=== PATIENT | male | born 1970 | race Caucasian/White ===

== ENCOUNTER 2018-06-06 09:51 | Inpatient (IN) | payer OTHER ==
[2018-06-06 10:29] VITALS: BMI 22.7
--- NOTE | 2018-06-06 11:15 | HP ---
COWS - Scale Resting Pulse: 0= [place] 80 or Below Sweatin= Chills/Flushing Restless Observation: 3= Extraneous Movement Pupil Size: 0= Normal to Room Light Bone or Joint Aches: 1= Mild Discomfort Runny Nose/ Eye Tearin= Nasal Congestion GI Upset > 30mins: 1= Stomach Cramp Tremor Observation: 1= Tremor [place], Not Seen Yawning Observation: 1= 1-2x During Session Anxiety or Irritability: 2=Irritable/Anxious Goose Flesh Skin: 3=Piloerection COWS Score: 14 Admission ROS S - HPI Chief Complaint: HEROIN WITHDRAWAL SX-HOT/COLD CHILLS,SHAKES Allergies/Adverse Reactions: Allergies Allergy/AdvReac Type Severity Reaction Status Date / Time Fish Containing Products Allergy Severe Swelling Verified 06/06/18 10:45 NKDA Allergy Uncoded 06/06/18 10:45 History of Present Illness: 47 Y/O H/MALE WITH A HX OF HEROIN DEPENDENCE SEEKING DETOX TX. THIS IS PT'S FIRST TIME HERE BUT REPORTS PREVIOUS TREATMENT EPISODE. ALERT O X 3. REPORTS HX ANXIETY AND INSOMNIA. DENIES DEPRESSION. DENIES S/H/I. Exam Limitations: No Limitations - Ebola screening Have you traveled outside of the country in the last 21 days: No (N) Have you had contact with anyone from an Ebola affected area: No Have you been sick,other than usual withdrawal symptoms: No Do you have a fever: No - Review of Systems Constitutional: Chills, Loss of Appetite, Night Sweats, Changes in sleep EENT: reports: Tearing, Nose Congestion, Dental Problems (MISSING TEETH) Respiratory: reports: No Symptoms reported Cardiac: reports: Lightheadedness GI: reports: Constipated, Diarrhea, Nausea, Vomiting : reports: No Symptoms Reported Musculoskeletal: reports: Back Pain, Joint Pain, Muscle Pain Integumentary: reports: Bruising (IVD INJ SITE ON RIGHT AND LEFT ELBOWS.) Neuro: reports: Headache, Numbness, Tingling, Tremors, Dizziness Endocrine: reports: No Symptoms Reported Hematology: reports: No Symptoms Reported Psychiatric: reports: Orientated x3, Anxious Other Systems: Reviewed and Negative Patient History - Patient Medical History Hx Anemia: No Hx Asthma: No Hx Chronic Obstructive Pulmonary Disease (COPD): No Hx Cardiac Disorders: No Hx Hypertension: No Hx Hypercholesterolemia: No HX Cerebrovascular Accident: No Hx Seizures: No Hx Diabetes: No Hx Gastrointestinal Disorders: No Hx Genitourinary Disorders: No Hx Sexually Transmitted Disorders: No (DENIES) Hx Renal Disease (ESRD): No Hx Hepatitis C: Yes (IN 1997 TREATMENT DONE IN LONG-TERM) Hx Depression: No Hx Suicide Attempt: No (DENIES S/I) Hx Schizophrenia: No Other Medical History: ANXIETY AND INSOMNIA-WANTS PSYCH EVALUATION - Patient Surgical History Past Surgical History: Yes Hx Neurologic Surgery: No Hx Cataract Extraction: No Hx Cardiac Surgery: No Hx Lung Surgery: No Hx Breast Surgery: No Hx Breast Biopsy: No Hx Abdominal Surgery: No Hx Appendectomy: No Hx Cholecystectomy: No Hx Genitourinary Surgery: No Hx Orthopedic Surgery: Yes (fx, right wrist) Anesthesia Reaction: No - PPD History Previous Implant?: Yes (HX PPD+-TREATED IN LONG-TERM FOR 6 MONTHS IN 2002) Documented Results: Positive w/o proof Implanted On Prior R Admission?: No PPD to be Administered?: No - Reproductive History Patient is a Female of Child Bearing Age (11 -55 yrs old): No (MALE) - Smoking Cessation Smoking history: Current every day smoker Have you smoked in the past 12 months: Yes Aproximately how many cigarettes per day: 20 Hx Chewing Tobacco Use: No Initiated information on smoking cessation: Yes 'Breaking Loose' booklet given: 06/06/18 - Substance & Tx. History Hx Substance Use: Yes (HEROIN ) Substance Use Type: Heroin Hx Substance Use Treatment: Yes - Substances Abused Heroin Route: Injection Frequency: Daily Amount used: 10-15 bags Age of first use: 11 Date of Last Use: 06/06/18 Family Disease History - Family Disease History Family Disease History: Diabetes: Mother (HANDICAPPED-ALIVE), Heart Disease: Mother, Other: Grandparent (), Father () Admission Physical Exam BHS - Vital Signs Vital Signs: Vital Signs - 24 hr 06/06/18 10:26 Temperature 98.5 F Pulse Rate 77 Respiratory 20 Rate Blood Pressure 146/78 - Physical General Appearance: Yes: Moderate Distress, Irritable, Anxious HEENTM: Yes: EOMI, Normocephalic, DEBO, Pharynx Normal Respiratory: Yes: Chest Non-Tender, Lungs Clear, Normal Breath Sounds, No Respiratory Distress Neck: Yes: No masses,lesions,Nodules, Supple, Trachea in good position Breast: Yes: Breast Exam Deferred Cardiology: Yes: Regular Rhythm, Regular Rate, S1, S2 Abdominal: Yes: Normal Bowel Sounds, Non Tender, Flat, Soft Genitourinary: Yes: Within Normal Limits Back: Yes: Within Normal Limits Musculoskeletal: Yes: full range of Motion, Gait Steady Extremities: Yes: Normal Range of Motion, Non-Tender Neurological: Yes: registered nurse supervisor II-XII NML intact, Fully Oriented, Alert, Motor Strength 5/5 Integumentary: Yes: Dry, Warm, Track [place] (BOTH ELBOWS, NO REDNESS OR SWELLING) Lymphatic: Yes: Within Normal Limits - Diagnostic (1) Opioid dependence with withdrawal Current Visit: Yes Status: Acute (2) History of anxiety Current Visit: Yes Status: Chronic (3) History of insomnia Current Visit: Yes Status: Chronic (4) Nicotine dependence Current Visit: Yes Status: Acute Qualifiers: Nicotine product type: cigarettes Substance use status: in withdrawal Qualified Code(s): F17.213 - Nicotine dependence, cigarettes, with withdrawal Cleared for Admission [facility] - Detox or Rehab [facility] Level of Care: Medically Managed Detox Regimen/Protocol: Methadone [facility] Breath Alcohol Content Breath Alcohol Content: 0 Urine Drug Screen - Results Drug Screen Negative: No Urine Drug Screen Results: RODGER-Cocaine, OPI-Opiates, MTD-Methadone
[2018-06-06] MEDS ORDERED: MAGNESIUM CITRATE 300 ML BOTTLE PO PRN (11:30)
[2018-06-06] MEDS ORDERED: NICOTINE POLACRILEX 4 MG GUM BUC PRN (11:30)
[2018-06-06] MEDS ORDERED: ACETAMINOPHEN 325 MG TABLET (FP) PO PRN (11:30)
[2018-06-06] MEDS ORDERED: guaiFENesin/D-METHORPHAN HB 10 ML UNIT-DOSE CUPS PO PRN (11:30)
[2018-06-06] MEDS ORDERED: MENTHOL/PHENOL 1 EACH UD MM PRN (11:30)
[2018-06-06] MEDS ORDERED: P-EPHED 60MG/TRIPROLIDI 2.5MG TABLET PO PRN (11:30)
[2018-06-06] MEDS ORDERED: MAGNESIUM HYDROX 2400MG/30ML ORAL SUSPENSION 30 ML CUP PO PRN (11:30)
[2018-06-06] MEDS ORDERED: LOPERAMIDE HCL 2 MG CAPSULE PO PRN (11:30)
[2018-06-06] MEDS ORDERED: IBUPROFEN 400 MG TABLET (FP) PO PRN (11:30)
[2018-06-06] MEDS ORDERED: MAG HYDROX/AL HYDROX/SIMETH 30 ML UNIT-DOSE CUP PO PRN (11:30)
[2018-06-06] MEDS ORDERED: METHADONE HCL 10 MG TABLET (FOR DETOX USE ONLY) PO ONE ×2 (13:00→23:00)
--- NOTE | 2018-06-06 14:28 | EKG ---
Test Reason : Blood Pressure : / mmHG Vent. Rate : 060 BPM Atrial Rate : 060 BPM P-R Int : 198 ms QRS Dur : 088 ms QT Int : 420 ms P-R-T Axes : 054 073 055 degrees QTc Int : 420 ms NORMAL SINUS RHYTHM NORMAL ECG NO PREVIOUS ECGS AVAILABLE Confirmed by SABAS PAINTING, NIK ([id number]) on 06/06/2018 2:28:18 PM Referred By: Confirmed By:NIK OBREGON MD
[2018-06-06] MEDS: NICOTINE 21 MG/24 HOURS TOPICAL PATCH TD SCH (14:43)
[2018-06-06] MEDS: diazePAM 5 MG TABLET PO PRN ×2 (14:43→20:42)
--- NOTE | 2018-06-06 15:29 | CONSULT ---
[facility] Psychiatric Consult - Data Date of interview: 06/06/18 Admission source: [facility] Identifying data: Patient is a 47 year old single male, without kids, employed, but currently homeless. This is patient's first admission to detox at [facility]. Patient admitted for cocaine and opiate dependence. Substance Abuse History: - Smoking Cessation. Smoking history: Current every day smoker. Have you smoked in the past 12 months: Yes. Aproximately how many cigarettes per day: 20. Hx Chewing Tobacco Use: No. Initiated information on smoking cessation: Yes. 'Breaking Loose' booklet given: 06/06/18. - Substance & Tx. History. Hx Substance Use: Yes (HEROIN ). Substance Use Type: Heroin. Hx Substance Use Treatment: Yes. - Substances Abused. Heroin. Route: Injection. Frequency: Daily. Amount used: 10-15 bags. Age of first use: 11. Date of Last Use: 06/06/18. Family Disease History Medical History: Treated for Hep C while incarcerated in 1997. hx of PPD+ ( treated while incarcerated in 2002) Psychiatric History: Patient denies h/o psychiatric hospitalization, outpatient care and suicide attempt. Pt. reports poor sleep. Physical/Sexual Abuse/Trauma History: Denies. Mental Status Exam - Mental Status Exam Alert and Oriented to: Time, Place, Person Cognitive Function: Good Patient Appearance: Well Groomed Mood: Euthymic Affect: Mood Congruent Patient Behavior: Appropriate, Cooperative Speech Pattern: Appropriate Voice Loudness: Normal Thought Process: Intact, Goal Oriented Thought Disorder: Not Present Hallucinations: Denies Suicidal Ideation: Denies Homicidal Ideation: Denies Insight/Judgement: Poor Sleep: Poorly Appetite: Fair Muscle strength/Tone: Normal Gait/Station: Other (Did not observe patient's gait.) Psychiatric Findings - Problem List ([place] 1, 2,3) (1) Substance-induced sleep disorder Current Visit: Yes Status: Acute (2) Nicotine dependence Current Visit: Yes Status: Chronic Qualifiers: Nicotine product type: cigarettes Substance use status: in withdrawal Qualified Code(s): F17.213 - Nicotine dependence, cigarettes, with withdrawal (3) Opioid dependence with withdrawal Current Visit: Yes Status: Acute (4) Cocaine dependence Current Visit: Yes Status: Acute - Initial Treatment Plan Initial Treatment Plan: Psychoeducation provided. Detoxification in progress. Patient informed that melatonin 5mg is available for insomnia. Benefits and side effects discussed.
[2018-06-06] MEDS: THIAMINE HCL 100 MG TABLET (FP) PO SCH (22:05)
[2018-06-06] MEDS: MELATONIN 5 MG TABLETS PO PRN (22:06)
[2018-06-07] MEDS ORDERED: METHADONE HCL 10 MG TABLET (FOR DETOX USE ONLY) PO ONE (10:00)
--- NOTE | 2018-06-07 10:08 | PN ---
BHS COWS - Scale Resting Pulse: 0= [place] 80 or Below Sweatin= Chills/Flushing Restless Observation: 1= Difficult to Sit Still Pupil Size: 1= Pupils >than Normal Bone or Joint Aches: 2= Severe Diffuse Aches Runny Nose/ Eye Tearin= Nasal Congestion GI Upset > 30mins: 1= Stomach Cramp Tremor Observation of Outstretched Hands: 2= Slight Tremor Visible Yawning Observation: 2= >3x During Session Anxiety or Irritability: 2=Irritable/Anxious Goose Flesh Skin: 0=Smooth Skin COWS Score: 13 BHS Progress Note (SOAP) Subjective: JOINT PAIN BODY ACHES SWEAT TREMOR RESTLESSNESS AGITATIVE ANXIETY Objective: 06/07/18 10:07 Vital Signs Temperature 97.7 F 06/07/18 07:42 Pulse Rate 66 06/07/18 07:42 Respiratory Rate 18 06/07/18 07:42 Blood Pressure 138/66 06/07/18 07:42 O2 Sat by Pulse Oximetry (%) Laboratory Last Values HIV 1&2 Antibody Screen Negative 06/06/18 11:40 HIV P24 Antigen Negative 06/06/18 11:40 LAB NOTED Assessment: 06/07/18 10:07 WITHDRAWAL SX Plan: CONTINUE DETOX
[2018-06-07] MEDS: PRENATAL VITAMINS W/ FOLIC ACID TABLET (FP) PO SCH (10:11)
[2018-06-07] MEDS: diazePAM 5 MG TABLET PO PRN ×3 (10:11→22:28)
[2018-06-07] MEDS: NICOTINE 21 MG/24 HOURS TOPICAL PATCH TD SCH (10:11)
[2018-06-07 10:17] LABS: HEMATOCRIT 36.9 % (35.4-49); HEMOGLOBIN 12.6 GM/dL (11.7-16.9); MCH 31.2 pg (25.7-33.7); MCHC 34.1 g/dl (32.0-35.9); MEAN CELL VOLUME 91.5 fl (80-96); MEAN PLT VOLUME 11.4 fl (7.5-11.1); PLATELET COUNT 140 K/MM3 (134-434); RBC 4.03 M/mm3 (4.00-5.60); RDW 12.7 % (11.9-15.9); WHITE BLOOD COUNT 6.7 K/mm3 (4.0-10.0)
[2018-06-07 10:38] LABS: CHLORIDE 100 mmol/L (98-107); POTASSIUM 4.2 mmol/L (3.5-5.1); SODIUM 138 mmol/L (136-145)
[2018-06-07 10:52] LABS: URINE APPEARANCE CLEAR; URINE BILIRUBIN NEGATIVE (<2.0 mg/dL); URINE COLOR YELLOW; URINE GLUCOSE (UA) NEGATIVE (NEGATIVE); URINE KETONE NEGATIVE (NEGATIVE); URINE LEUK ESTERASE NEGATIVE (NEGATIVE); URINE NITRITE NEGATIVE (NEGATIVE); URINE PROTEIN NEGATIVE (NEGATIVE); URINE UROBILINOGEN NEGATIVE mg/dL (0.2-1.0)
[2018-06-07 11:14] LABS: ALBUMIN 3.6 g/dl (3.4-5.0); ALK PHOS 106 U/L (45-117); ANION GAP 10 (8-16); BILIRUBIN,TOTAL 0.9 mg/dL (0.2-1.0); BLOOD UREA NITROGEN 21 mg/dL (7-18); CALCIUM 8.4 mg/dL (8.5-10.1); CO2 28 mmol/L (21-32); CREATININE 0.9 mg/dL (0.7-1.3); GLUCOSE,RANDOM 166 mg/dL (74-106); SGOT/AST 38 U/L (15-37); SGPT/ALT 54 U/L (12-78); TOT PROT 7.2 g/dl (6.4-8.2)
[2018-06-07 13:41] LABS: SICKLE CELL SCREEN NEGATIVE (NEGATIVE)
--- NOTE | 2018-06-07 15:14 | PN ---
Psychiatric Progress Note Vital Signs: Vital Signs Period Temp Pulse Resp BP Sys/Alfred Pulse Ox Last 24 Hr 97.0 F-98.2 F 66-77 18-20 125-138/65-80 Date of Session: 06/07/18 Chief Complaint:: Insomnia HPI: Patient reports insomnia, reports good response on Seroquel 100mg po qhs in the past Current Medications: Active Medications Generic Name Dose Route Start Last Admin Trade Name Freq PRN Reason Stop Dose Admin Acetaminophen 650 mg 06/06/18 11:30 Tylenol - PO Q4H PRN FEVER Al Hydroxide/Mg Hydroxide 30 ml 06/06/18 11:30 Mylanta Oral Suspension - PO Q6H PRN DYSPEPSIA Diazepam 10 mg 06/06/18 11:30 06/07/18 14:48 Valium - PO 06/09/18 11:29 10 mg Q4H PRN Administration WITHDRAWAL(CONT SUBST) Eucalyptus/Menthol/Phenol/Sorbitol 1 each 06/06/18 11:30 Cepastat Lozenge - MM Q4H PRN SORE THROAT Guaifenesin 10 ml 06/06/18 11:30 Robitussin Dm - PO Q6H PRN COUGH Ibuprofen 400 mg 06/06/18 11:30 Motrin - PO Q6H PRN PAIN LEVEL 4-6 Loperamide HCl 4 mg 06/06/18 11:30 Imodium - PO Q6H PRN DIARRHEA Magnesium Citrate 300 ml 06/06/18 11:30 Citroma - PO Q48H PRN CONSTIPATION Magnesium Hydroxide 30 ml 06/06/18 11:30 Milk Of Magnesia - PO DAILY PRN CONSTIPATION Melatonin 5 mg 06/06/18 22:00 06/06/18 22:06 Melatonin PO 5 mg HS PRN Administration INSOMNIA Methadone HCl 15 mg 06/08/18 10:00 Dolophine - PO 06/08/18 10:01 ONCE ONE Methadone HCl 5 mg 06/11/18 06:00 Dolophine - PO 06/11/18 06:01 ONCE@0600 ONE Methadone HCl 15 mg 06/09/18 10:00 Dolophine - PO 06/09/18 10:01 ONCE ONE Methadone HCl 10 mg 06/10/18 10:00 Dolophine - PO 06/10/18 10:01 ONCE ONE Nicotine 21 mg 06/06/18 13:00 06/07/18 10:11 Nicoderm Patch - TD 21 mg DAILY [place] Administration Nicotine Polacrilex 4 mg 06/06/18 11:30 Nicorette Gum - BUC Q2H PRN NICOTINE REPLACEMENT RX Multivit/Folic Acid/Iron 1 tab 06/07/18 10:00 06/07/18 10:11 Vitamins (Sjr) - PO 1 tab DAILY [place] Administration Pseudoephedrine/Triprolidine 1 combo 06/06/18 11:30 Actifed - PO TID PRN NASAL CONGESTION Quetiapine Fumarate 100 mg 06/07/18 22:00 Seroquel - PO HS [place] Thiamine HCl 100 mg 06/06/18 22:00 06/06/18 22:05 Vitamin B1 - PO 100 mg HS [place] Administration Provider note:: Start Seroquel 100mg po qhs Mental Status Exam - Mental Status Exam Alert and Oriented to: Person Cognitive Function: Fair Patient Appearance: Well Groomed Mood: Anxious Affect: Normal Range Patient Behavior: Cooperative Speech Pattern: Excessive Voice Loudness: Normal Thought Process: Goal Oriented Thought Disorder: Being Controlled Hallucinations: Denies Suicidal Ideation: Denies Homicidal Ideation: Denies Insight/Judgement: Fair Appetite: Weight loss Muscle strength/Tone: Normal Gait/Station: Normal Additional Comments: Seroquel 100mg po qhs Psychiatric Treatment Plan - Problem List (1) Opioid-induced sleep disorder, insomnia type, with onset during discontinuation/withdrawal Current Visit: Yes (2) Cocaine dependence Current Visit: Yes (3) Opioid dependence with withdrawal Current Visit: Yes (4) Substance-induced sleep disorder Current Visit: Yes (5) History of anxiety Current Visit: Yes (6) History of insomnia Current Visit: Yes (7) Nicotine dependence Current Visit: Yes Qualifiers: Nicotine product type: cigarettes Substance use status: in withdrawal Qualified Code(s): F17.213 - Nicotine dependence, cigarettes, with withdrawal Initial treatment plan: Seroquel 100mg po qhs
[2018-06-07] MEDS: THIAMINE HCL 100 MG TABLET (FP) PO SCH (22:28)
[2018-06-07] MEDS: QUEtiapine FUMARATE 100 MG TABLET (FP) PO SCH (23:32)
[2018-06-08] MEDS ORDERED: METHADONE HCL 5 MG TABLET (FOR DETOX USE ONLY) PO ONE (10:00)
[2018-06-08] MEDS: diazePAM 5 MG TABLET PO PRN ×3 (10:16→22:22)
[2018-06-08] MEDS: PRENATAL VITAMINS W/ FOLIC ACID TABLET (FP) PO SCH (10:16)
[2018-06-08] MEDS: NICOTINE 21 MG/24 HOURS TOPICAL PATCH TD SCH (10:17)
--- NOTE | 2018-06-08 11:55 | PN ---
BHS COWS - Scale Resting Pulse: 1= [place] 81-100 Sweatin= Chills/Flushing Restless Observation: 1= Difficult to Sit Still Pupil Size: 1= Pupils >than Normal Bone or Joint Aches: 1= Mild Discomfort Runny Nose/ Eye Tearin= Nasal Congestion GI Upset > 30mins: 2= Nausea/Diarrhea Tremor Observation of Outstretched Hands: 1= Tremor [place], Not Seen Yawning Observation: 2= >3x During Session Anxiety or Irritability: 0= None Goose Flesh Skin: 3=Piloerection COWS Score: 14 BHS Progress Note (SOAP) Subjective: c/o of interrupted sleep, anxious, nausea Objective: 06/08/18 11:54 Vital Signs Temperature 99.0 F 06/08/18 10:17 Pulse Rate 84 06/08/18 10:17 Respiratory Rate 18 06/08/18 10:17 Blood Pressure 148/73 06/08/18 10:17 O2 Sat by Pulse Oximetry (%) Laboratory Last Values WBC 6.7 K/mm3 (4.0-10.0) 06/07/18 06:00 RBC 4.03 M/mm3 (4.00-5.60) 06/07/18 06:00 Hgb 12.6 GM/dL (11.7-16.9) 06/07/18 06:00 Hct 36.9 % (35.4-49) 06/07/18 06:00 MCV 91.5 fl (80-96) 06/07/18 06:00 MCH 31.2 pg (25.7-33.7) 06/07/18 06:00 MCHC 34.1 g/dl (32.0-35.9) 06/07/18 06:00 RDW 12.7 % (11.9-15.9) 06/07/18 06:00 Plt Count 140 K/MM3 (134-434) 06/07/18 06:00 MPV 11.4 fl (7.5-11.1) H 06/07/18 06:00 Sickle Cell Screen Negative (NEGATIVE) 06/07/18 06:00 Sodium 138 mmol/L (136-145) 06/07/18 06:00 Potassium 4.2 mmol/L (3.5-5.1) 06/07/18 06:00 Chloride 100 mmol/L (98-107) 06/07/18 06:00 Carbon Dioxide 28 mmol/L (21-32) 06/07/18 06:00 Anion Gap 10 (8-16) 06/07/18 06:00 BUN 21 mg/dL (7-18) H 06/07/18 06:00 Creatinine 0.9 mg/dL (0.7-1.3) 06/07/18 06:00 Creat Clearance w eGFR > 60 (>60) 06/07/18 06:00 Random Glucose 166 mg/dL (74-106) H 06/07/18 06:00 Calcium 8.4 mg/dL (8.5-10.1) L 06/07/18 06:00 Total Bilirubin 0.9 mg/dL (0.2-1.0) 06/07/18 06:00 AST 38 U/L (15-37) H 06/07/18 06:00 ALT 54 U/L (12-78) 06/07/18 06:00 Alkaline Phosphatase 106 U/L (45-117) 06/07/18 06:00 Total Protein 7.2 g/dl (6.4-8.2) 06/07/18 06:00 Albumin 3.6 g/dl (3.4-5.0) 06/07/18 06:00 Urine Color Yellow 06/07/18 08:30 Urine Appearance Clear 06/07/18 08:30 Urine pH 6.0 (5.0-8.0) 06/07/18 08:30 Ur Specific [place] 1.014 (1.001-1.035) 06/07/18 08:30 Urine Protein Negative (NEGATIVE) 06/07/18 08:30 Urine Glucose (UA) Negative (NEGATIVE) 06/07/18 08:30 Urine Ketones Negative (NEGATIVE) 06/07/18 08:30 Urine Blood Negative (NEGATIVE) 06/07/18 08:30 Urine Nitrite Negative (NEGATIVE) 06/07/18 08:30 Urine Bilirubin Negative (<2.0 mg/dL) 06/07/18 08:30 Urine Urobilinogen Negative mg/dL (0.2-1.0) 06/07/18 08:30 Ur Leukocyte Esterase Negative (NEGATIVE) 06/07/18 08:30 RPR Titer Nonreactive (NONREACTIVE) 06/07/18 06:00 HIV 1&2 Antibody Screen Negative 06/06/18 11:40 HIV P24 Antigen Negative 06/06/18 11:40 Patient Aox3, no distress no adventitious breath sounds ambulating in the unit independently without difficulty Assessment: 06/08/18 11:54 withdrawal sx Plan: increase fluids continue detox BGM ACBK continue to monitor
[2018-06-08] MEDS: hydrOXYzine PAMOATE 50 MG CAPSULE (FP) PO PRN (13:25)
[2018-06-08] MEDS: QUEtiapine FUMARATE 100 MG TABLET (FP) PO SCH (22:21)
[2018-06-08] MEDS: THIAMINE HCL 100 MG TABLET (FP) PO SCH (22:21)
[2018-06-08] MEDS: MELATONIN 5 MG TABLETS PO PRN (22:23)
[2018-06-09] MEDS ORDERED: METHADONE HCL 5 MG TABLET (FOR DETOX USE ONLY) PO ONE (10:00)
[2018-06-09] MEDS: PRENATAL VITAMINS W/ FOLIC ACID TABLET (FP) PO SCH (10:20)
[2018-06-09] MEDS: NICOTINE 21 MG/24 HOURS TOPICAL PATCH TD SCH (10:20)
[2018-06-09] MEDS: diazePAM 5 MG TABLET PO PRN (10:22)
--- NOTE | 2018-06-09 10:54 | PN ---
BHS Progress Note (SOAP) Subjective: Sleep disturbance shakes sweats Objective: 06/09/18 10:50 A & O x 3 In day room eating No acute distress Vital Signs Temperature 98.0 F 06/09/18 09:50 Pulse Rate 85 06/09/18 09:50 Respiratory Rate 18 06/09/18 09:50 Blood Pressure 121/70 06/09/18 09:50 O2 Sat by Pulse Oximetry (%) Laboratory Last Values WBC 6.7 K/mm3 (4.0-10.0) 06/07/18 06:00 RBC 4.03 M/mm3 (4.00-5.60) 06/07/18 06:00 Hgb 12.6 GM/dL (11.7-16.9) 06/07/18 06:00 Hct 36.9 % (35.4-49) 06/07/18 06:00 MCV 91.5 fl (80-96) 06/07/18 06:00 MCH 31.2 pg (25.7-33.7) 06/07/18 06:00 MCHC 34.1 g/dl (32.0-35.9) 06/07/18 06:00 RDW 12.7 % (11.9-15.9) 06/07/18 06:00 Plt Count 140 K/MM3 (134-434) 06/07/18 06:00 MPV 11.4 fl (7.5-11.1) H 06/07/18 06:00 Sickle Cell Screen Negative (NEGATIVE) 06/07/18 06:00 Sodium 138 mmol/L (136-145) 06/07/18 06:00 Potassium 4.2 mmol/L (3.5-5.1) 06/07/18 06:00 Chloride 100 mmol/L (98-107) 06/07/18 06:00 Carbon Dioxide 28 mmol/L (21-32) 06/07/18 06:00 Anion Gap 10 (8-16) 06/07/18 06:00 BUN 21 mg/dL (7-18) H 06/07/18 06:00 Creatinine 0.9 mg/dL (0.7-1.3) 06/07/18 06:00 Creat Clearance w eGFR > 60 (>60) 06/07/18 06:00 POC Glucometer 304 UNITS (80-120) 06/09/18 07:53 Random Glucose 166 mg/dL (74-106) H 06/07/18 06:00 Calcium 8.4 mg/dL (8.5-10.1) L 06/07/18 06:00 Total Bilirubin 0.9 mg/dL (0.2-1.0) 06/07/18 06:00 AST 38 U/L (15-37) H 06/07/18 06:00 ALT 54 U/L (12-78) 06/07/18 06:00 Alkaline Phosphatase 106 U/L (45-117) 06/07/18 06:00 Total Protein 7.2 g/dl (6.4-8.2) 06/07/18 06:00 Albumin 3.6 g/dl (3.4-5.0) 06/07/18 06:00 Urine Color Yellow 06/07/18 08:30 Urine Appearance Clear 06/07/18 08:30 Urine pH 6.0 (5.0-8.0) 06/07/18 08:30 Ur Specific [place] 1.014 (1.001-1.035) 06/07/18 08:30 Urine Protein Negative (NEGATIVE) 06/07/18 08:30 Urine Glucose (UA) Negative (NEGATIVE) 06/07/18 08:30 Urine Ketones Negative (NEGATIVE) 06/07/18 08:30 Urine Blood Negative (NEGATIVE) 06/07/18 08:30 Urine Nitrite Negative (NEGATIVE) 06/07/18 08:30 Urine Bilirubin Negative (<2.0 mg/dL) 06/07/18 08:30 Urine Urobilinogen Negative mg/dL (0.2-1.0) 06/07/18 08:30 Ur Leukocyte Esterase Negative (NEGATIVE) 06/07/18 08:30 RPR Titer Nonreactive (NONREACTIVE) 06/07/18 06:00 HIV 1&2 Antibody Screen Negative 06/06/18 11:40 HIV P24 Antigen Negative 06/06/18 11:40 FS POC 304mg/dl Assessment: 06/09/18 10:51 withdrawal sx Hyperglycemia - denies hx Plan: Metformin ordered (obtained from med hx) for high BG Educated on lifestyle modification re - hyperglycemia Continue detox
[2018-06-09] MEDS: hydrOXYzine PAMOATE 50 MG CAPSULE (FP) PO PRN (14:22)
[2018-06-09 15:22] VITALS: BP 145/80; PULSE 82; TEMP 98.1
[2018-06-09] MEDS ORDERED: INSULIN SLIDING SCALE (NOVOLOG) 1 VIAL SQ SCH (16:30)
[2018-06-09] MEDS ORDERED: metFORMIN HCL 500 MG TABLET (FP) PO SCH (16:30)
--- NOTE | 2018-06-09 16:46 | DS ---
[facility] Detox Discharge Summary Admission Date: 06/06/18 Discharge Date: 06/09/18 - History Additional Comments: Pt insisting on leaving the program. Declined to stay to complete detox Did not give reason, when reminded that his sugar was high and to have it monitored and regulated, he stated he didnt care and something's will kill somebody anyway. Denies SI/HI. Declines prescription for anti-glycemic, states "I dont take that shit" Pt will sign out AMA - Physical Exam Results Vital Signs: Vital Signs Temperature 98.1 F 06/09/18 15:21 Pulse Rate 82 06/09/18 15:21 Respiratory Rate 18 06/09/18 15:21 Blood Pressure 145/80 06/09/18 15:21 O2 Sat by Pulse Oximetry (%) - Medication Discharge Medications: Ambulatory Orders Quetiapine Fumarate [Seroquel] 100 mg PO HS #30 tablet 06/07/18 - Diagnosis (1) Opioid dependence with withdrawal Current Visit: Yes Status: Acute (2) Nicotine dependence Current Visit: Yes Status: Chronic Qualifiers: Nicotine product type: cigarettes Substance use status: in withdrawal Qualified Code(s): F17.213 - Nicotine dependence, cigarettes, with withdrawal (3) Cocaine dependence Current Visit: Yes Status: Acute Qualifiers: Substance use status: uncomplicated Qualified Code(s): F14.20 - Cocaine dependence, uncomplicated (4) Elevated glucose level Current Visit: Yes Status: Acute (5) Substance-induced sleep disorder Current Visit: Yes Status: Acute (6) History of anxiety Current Visit: Yes Status: Chronic - AMA Did Patient Leave Against Medical Advice: Yes
[2018-06-10] MEDS ORDERED: METHADONE HCL 10 MG TABLET (FOR DETOX USE ONLY) PO ONE (10:00)
[2018-06-11] MEDS ORDERED: METHADONE HCL 5 MG TABLET (FOR DETOX USE ONLY) PO ONE (06:00)
== END 2018-06-09 16:45 | disposition left against medical advice (07) | DRG 770 ==
LOC: YASAS 09:51 → Y6N 12:53
PROVIDERS: ADMIT Surgery; ATTEND Surgery
PROC: HZ2ZZZZ Detoxification Services for Substance Abuse Treatment (ICD-10-PCS; principal; 2018-06-06)
DX: F11.23 Opioid dependence with withdrawal (principal); F14.20 Cocaine dependence, uncomplicated; F17.213 Nicotine dependence, cigarettes, with withdrawal; F19.282 Other psychoactive substance dependence with psychoactive substance-induced sleep disorder; F41.9 Anxiety disorder, unspecified; G47.00 Insomnia, unspecified; R73.09 Other abnormal glucose
CPT/HCPCS: 36415; 71046-TC-FY; 80053; 81003; 82962; 85027; 85660; 86593; 87389; 93005; 93010